=== PATIENT | male | born 2000 | race Caucasian/White ===

== ENCOUNTER → 2019-02-05 | Outpatient (CLI) | payer MEDICAID, OTHER ==
--- NOTE | 2019-02-05 10:32 | US ---
EXAMINATION TYPE: US scrotum with doppler. Grayscale and color Doppler Duplex imaging performed of t kraig scrotum. DATE OF EXAM: 02/05/2019 COMPARISON: NONE CLINICAL HISTORY: N50.9 scrotal mass. No scrotal mass is palpated per patient. Patient c/o scrotal pa in x 1 week; denies trauma, only does mild lifting at work. EXAM MEASUREMENTS: TESTICLES: Right Testicle: 5.1 x 3.5 x 2.5 cm Left Testicle: 5.1 x 3.1 x 2.6 cm EPIDIDYMIS HEAD: Right Epididymis: 0.5 x 0.5 x 0.8 cm; small benign epididymal head cyst is noted = 0.2 x 0.2 x 0.2cm . Left Epididymis: 1.0 x 1.1 x 1.2 cm PW and Color Doppler was performed to assess for testicular vascularity; good bilateral color flow an d waveforms are seen. There is no evidence of testicular torsion. Presence of hydroceles: no Presence of varicoceles: no IMPRESSION: Unremarkable scrotal ultrasound other than a 2 mm benign epididymal cyst.
== END | disposition home or self-care (01) ==
LOC: RADUSMAIN 08:27
PROVIDERS: ATTEND Family Medicine
DX: N50.3 Cyst of epididymis (principal)
CPT/HCPCS: 76870; 93975